=== PATIENT | female | born 1940 | race Caucasian/White ===

== ENCOUNTER 2017-03-20 12:00 | Emergency (ER) | payer MEDICARE, OTHER ==
[~2017-03-20] VITALS: Ht 160 cm; Wt 68.9 kg
[~2017-03-20 12:00] MED LIST: ENAL1TAB10 PO; EZET10TA13 PO; PITA2TAB PO
== END 2017-03-20 17:04 | disposition left against medical advice (07) ==
LOC: ER 12:04
DX: B34.9 Viral infection, unspecified (principal); I10 Essential (primary) hypertension; Z85.3 Personal history of malignant neoplasm of breast
CPT/HCPCS: 71045; A4663